=== PATIENT | female | born 1975 | race Two or more races ===

== ENCOUNTER 2022-08-02 11:44 | Emergency (ER) | payer BC, OTHER ==
[~2022-08-02] VITALS: Ht 154.9 cm; Wt 73.0 kg
[2022-08-02 14:15] LABS: Basophils # (auto) 0.1 10 ^3/uL (0-0.2); Basophils % (auto) 1.5 % (0.0-2.0); Eosinophils # (auto) 0.2 10 ^3/uL (0-0.8); Eosinophils % (auto) 3.6 % (0.0-7.0); Hematocrit 44.4 % (36.0-46.0); Lymphocytes # (auto) 2.2 10 ^3/uL (0.4-5.4); Lymphocytes % (auto) 32.1 % (10.0-50.0); Mean Corpuscular Hemoglobin 31.1 pg (28.0-32.0); Mean Corpuscular Hgb Conc. 33.7 g/dL (32.0-36.0); Mean Corpuscular Volume 92.4 fL (80.0-100.0); Monocytes # (auto) 0.5 10 ^3/uL (0-1.3); Monocytes % (auto) 7.4 % (0.0-12.0); Neutrophils # (auto) 3.9 10 ^3/uL (1.6-8.6); Neutrophils % (auto) 55.4 % (37.0-80.0); Nucleated Red Blood Cells % 0.3 %; Red Blood Cells 4.81 10^6/uL (4.0-5.20); Red Cell Distribution Width 13.1 % (11.8-14.3)
[2022-08-02 14:25] LABS: Albumin 4.1 g/dL (3.4-5.0); Calcium 9.5 mg/dL (8.5-10.1); Potassium 3.7 mmol/L (3.5-5.1)
[2022-08-02 14:30] LABS: BUN/Creatinine Ratio 28.3; Bilirubin, Total 0.9 mg/dL (0.2-1.0); Total Protein 7.8 g/dL (6.4-8.2)
[2022-08-02 15:35] LABS: Urine Bacteria FEW /hpf (None Seen); Urine Blood TRACE /uL (Negative); Urine Specific Gravity 1.011 (1.001-1.035); Urine WBC <1 /hpf (0 - 5)
[2022-08-02 16:41] VITALS: BP 141/96
== END 2022-08-02 17:35 | disposition left against medical advice (07) ==
LOC: ER 11:44
DX: R10.13 Epigastric pain (principal); R11.0 Nausea; R19.7 Diarrhea, unspecified; I10 Essential (primary) hypertension; R10.2 Pelvic and perineal pain; Z90.49 Acquired absence of other specified parts of digestive tract; Z53.29 Procedure and treatment not carried out because of patient's decision for other reasons
CPT/HCPCS: 36415; 74176; 80053; 81001; 83690; 84484; 84702; 85025; 93005

== ENCOUNTER 2023-02-28 12:24 | Emergency (ER) | payer BC ==
[~2023-02-28] VITALS: Ht 154.9 cm; Wt 72.8 kg
[2023-02-28 15:40] VITALS: BP 121/70
== END 2023-02-28 15:42 | disposition home or self-care (01) ==
LOC: ER 12:24
DX: S83.92XA Sprain of unspecified site of left knee, initial encounter (principal); X58.XXXA Exposure to other specified factors, initial encounter; Y93.89 Activity, other specified; Y92.89 Other specified places as the place of occurrence of the external cause; Y99.8 Other external cause status
CPT/HCPCS: 73562

== ENCOUNTER 2023-10-30 18:36 | Emergency (ER) | payer BC ==
[~2023-10-30] VITALS: Ht 154.9 cm; Wt 75.1 kg
[2023-10-30 21:11] LABS: COVID19 ANTIGEN SOFIA FIA NEGATIVE (NEGATIVE); Rapid Influenza A Negative (Negative); Rapid Influenza B Negative (Negative)
[2023-10-30 22:08] VITALS: BP 139/74; PULSE 89; RESP 19; TEMP 98.1
[2023-10-30 22:09] VITALS: O2SAT 98
== END 2023-10-30 22:14 | disposition home or self-care (01) ==
LOC: ER 18:36
DX: J06.9 Acute upper respiratory infection, unspecified (principal); R07.89 Other chest pain; J45.909 Unspecified asthma, uncomplicated; I10 Essential (primary) hypertension; E03.9 Hypothyroidism, unspecified; Z90.49 Acquired absence of other specified parts of digestive tract; Z90.89 Acquired absence of other organs; Z20.822 Contact with and (suspected) exposure to COVID-19
CPT/HCPCS: 36415; 71046; 87426; 87804